=== PATIENT | male | born 1985 | race Hispanic/Latino ===

== ENCOUNTER 2018-11-11 19:16 | Emergency (ER) | payer BC ==
[2018-11-11] MEDS ORDERED: LIDOCAINE HCL 1% 20 ML VIAL ONE (20:02)
[2018-11-11] MEDS ORDERED: TETANUS/DIPHTHERIA TOXOID [ADULT] 0.5 ML VIAL IM ONE (20:03)
== END 2018-11-11 20:31 | disposition home or self-care (01) ==
LOC: EDH 19:16
DX: S51.012A Laceration without foreign body of left elbow, initial encounter (principal); Z72.0 Tobacco use; W22.8XXA Striking against or struck by other objects, initial encounter; Y93.89 Activity, other specified; Y92.098 Other place in other non-institutional residence as the place of occurrence of the external cause; Y99.8 Other external cause status
CPT/HCPCS: 12001; 90471; 90714; 96372